=== PATIENT | male | born 1950 | race African-American/Black ===

== ENCOUNTER 2017-01-04 17:36 | Inpatient (IN) ==
[2017-01-04] MEDS ORDERED: PANTOPRAZOLE 40 MG VIAL IV STA (18:22)
[2017-01-04] MEDS ORDERED: ONDANSETRON 4 MG/2 ML VIAL IV STA (18:22)
[2017-01-04] MEDS ORDERED: HYDROmorphone 2 MG/1 ML VIAL IV STA ×2 (18:22→20:20)
[2017-01-04] MEDS ORDERED: AMPICILLIN/SULBACTAM 3,000 MG in SODIUM CHLORIDE 0.9% 100 ML IV STA (18:22)
[2017-01-04] MEDS ORDERED: ONDANSETRON 4 MG/2 ML VIAL ONE (18:27)
[2017-01-04] MEDS ORDERED: HYDROmorphone 2 MG/1 ML VIAL ONE ×2 (18:27→20:19)
[2017-01-04] MEDS ORDERED: PANTOPRAZOLE 40 MG VIAL IV ONE (18:27)
[2017-01-04 18:28] LABS: Basophils % 0.1 % (0.0-0.8); Hematocrit 42.3 VOL% (42.0-52.0); Hemoglobin 13.7 GM/DL (14.0-18.0); Immature Granulocytes % 0.5 %; Immature Granulocytes Absolute 0.07 #; Lymphocytes # 2.1 10*3/uL (1.4-4.0); Lymphocytes % 14.6 % (21.2-54.2); Mean Corpuscular HGB Conc 32.4 GM/DL (32-36); Mean Corpuscular Hemoglobin 30 PG (27-34); Mean Corpuscular Volume 93.8 FL (87-102); Monocytes # 1.5 10*3/uL (0.11-0.8); Monocytes % 10.1 % (1.7-12.7); Neutrophils # 10.9 10*3/uL (1.4-7.4); Neutrophils % 74.7 % (38.7-73.9); Platelet Count 287 T/CUMM (130-400); Red Blood Count 4.51 MC/CUMM (3.8-5.5); Red Cell Distribution Width 13.7 % (9.3-17.3); White Blood Count 14.6 T/CUMM (4-12)
[2017-01-04] MEDS: SODIUM CHLORIDE 0.9% 1,000 ML IV SCH ×4 (18:40→22:43)
[2017-01-04 18:53] LABS: Albumin 3.6 G/DL (3.4-5.0); Bilirubin,Total 0.6 MG/DL (0.2-1.0); Calcium 9.3 MG/DL (8.5-10.1); Osmolality,Calculated 275.8 MOS/KG (273-304); Potassium 4.4 MMOL/L (3.5-5.1); Total Protein 8.1 G/DL (6.4-8.3)
[2017-01-04] MEDS ORDERED: SODIUM CHLORIDE 0.9% 100 ML IV ONE (18:57)
[2017-01-04] MEDS ORDERED: AMPICILLIN/SULBACTAM 3,000 MG VIAL ONE (18:57)
[2017-01-04] MEDS ORDERED: hydrALAZINE 20 MG/1 ML VIAL IV STA (19:09)
[2017-01-04] MEDS ORDERED: LEVOFLOXACIN INJ 750 MG in PREMIX 1 EACH IV STA (19:25)
[2017-01-04] MEDS ORDERED: hydrALAZINE 20 MG/1 ML VIAL ONE (19:32)
[2017-01-04] MEDS ORDERED: LEVOFLOXACIN INJ 0 ML IV ONE (19:32)
--- NOTE | 2017-01-04 19:32 | CT Report ---
Referring physician: Moisés Mitchell EXAM: CT abdomen and pelvis with contrast DATE: January 04, 2017 COMPARISON: None REASON: Generalized abdominal pain and pelvic pain TECHNIQUE: Axial images of the abdomen and pelvis were obtained after administration of 100 cc of Omnipaque 350 IV contrast. Coronal and sagittal reformatted images were also provided. Total DLP is 1427.6 mGy*cm. FINDINGS: Lower thorax: There is mild left pleural fluid. Opacities are present within both lower lung zones, mainly within the right middle lobe and left lower lobe. This likely represents atelectasis and possibly pneumonia. A calcified granuloma is noted within the left lower lobe, and there is likely gynecomastia. ABDOMEN: Liver: There is mild diffuse decreased attenuation of the liver, suggesting fatty liver infiltration/hepatic steatosis. Gallbladder and bile ducts: The gallbladder is unremarkable. No biliary duct dilatation is present. Pancreas: Unremarkable. Spleen: Unremarkable. Adrenals: There is nonspecific mild thickening of both adrenal glands. Kidneys and ureters: No hydronephrosis or suspicious renal lesion is identified. PELVIS: Bladder: There is a small outpouching near the left UVJ. This likely represents a small bladder diverticulum. The bladder is otherwise unremarkable. Reproductive: Unremarkable as visualized. ABDOMEN AND PELVIS: Bowel: The transverse colon and cecum are distended with air, fluid and stool, and there are fluid-filled loops of distal small bowel. This could reflect enteritis or mild ileus. Partial obstruction is felt less likely. Of note, the splenic flexure is poorly distended and difficult to evaluate. Appendix: The appendix is unremarkable. Vasculature: The odontoid arteries. Peritoneum/retroperitoneum: No free air or ascites is seen. Lymph nodes: No suspicious adenopathy is seen. Abdominal/pelvic wall: There is minimal fat-containing umbilical hernia and a small fat-containing left inguinal hernia. Bones: There is mild degenerative change at the lumbar spine. No acute osseous process is seen. IMPRESSION: 1. The transverse colon and descending colon are distended with air, stool and fluid, and there are fluid-filled loops of distal small bowel. This could represent enteritis or ileus. Partial obstruction is felt less likely, but follow-up would be helpful. Of note, the splenic flexure is poorly distended and difficult to evaluate. 2. There are scattered opacities within both lower lung zones, mainly at the right middle lobe and left lower lobe. This likely represents atelectasis, but there could also be pneumonia. There is mild left pleural fluid. 3. Fatty liver infiltration/hepatic steatosis. The CT exam was performed using one or more of the following dose reduction techniques: Automated exposure control and adjustment of the mA and/or kV according to patient size. PROCEDURE INTERPRETED AT [facility] DEPARTMENT OF RADIOLOGY Final Report Signed by: Dr. Ladarius Justice
[2017-01-04 19:53] LABS: Lactic Acid 1.1 MMOL/L (0.4-2.0)
--- NOTE | 2017-01-04 19:55 | Emergency Department Note ---
Sathish Saez Brittany, am scribing for, and in the presence of, Lalito Mitchell MD 18:27. Stephen Saez Doug C, MD, personally performed the services described in this documentation, ascribed by Comfort Bower in my presence, and it is both accurate and complete [id number] . Arrival - Arrival Chief Complaint: Abdominal / Flank Pain Stated Complaint: ABD. PAIN, SOB ED Nursing Triage Note: C/O LEFT SIDED UPPER ABDOMINAL PAIN WITH PAIN ON INSPIRATION. PT STATES IT HS GOTTEN WORSE. PT WAS SEEN THIS PAST SATURDAY IN ED. Mode of Arrival: Ambulatory Limitations: No Limitations Source: Patient, Family, RN Notes Reviewed Time Seen by Provider: 01/04/17 18:21 - History of Present Illness HPI Narrative: Patient is a 66-year-old black male presents to emergency room complaining of abdominal pain. Patient states this started 5 days ago. He swims the emergency room now for the third time. He states initially was hurting in his chest but now it is all across his abdomen. His loss his appetite and he feels nauseated though has not had any vomiting. He denies any fever or chills at home. He states the pain is worse with movement. He states his last movement about 5-6 days ago. He denies any bleeding in his stool and has not seen any melena. He denies any problems emptying his bladder. Onset (ago): day(s) (5) Consistency: constant Severity: severe Severity scale (1-10): 10 Quality: other (pressure) Allergies/Adverse Reactions: Allergies Allergy/AdvReac Type Severity Reaction Status Date / Time No Known Allergies Allergy Unverified 01/01/17 19:29 Home Medications: Home Medications Medication Instructions Recorded Confirmed Type Cyclobenzaprine [Flexeril] 10 mg PO Q12H PRN #30 tablet 01/01/17 01/04/17 Rx Ketorolac Tab [Toradol Tab] 10 mg PO Q6H PRN #14 tablet 01/01/17 01/04/17 Rx Methocarbamol Tab [Robaxin Tab] 750 mg PO QID PRN #20 tablet 01/02/17 01/04/17 Rx methylPREDNISolone DOSEPAK [Medrol 4 mg PO DAILY #21 tablet 01/02/17 01/04/17 Rx Dosepak] traMADol TAB [Ultram] 50 mg PO Q6H PRN #20 tablet 01/02/17 01/04/17 Rx Review of System - Review of System 12 point system: reviewed and no additional remarkable complaints except as stated - Review of System Constitutional: Present: chills. Absent: fever Eyes: Absent: vision change Head/Ears/Nose/Throat: Absent: nasal drainage, sore throat Respiratory: Absent: respiratory distress Cardiovascular: Absent: chest pain, palpitations Gastrointestinal: Present: abdominal pain, constipation. Absent: nausea, vomiting, diarrhea, melena, hematochezia Genitourinary male: Absent: urgency, dysuria, frequency Musculoskeletal: Absent: arm pain, back pain, leg pain, neck pain Skin: Absent: rash Neurological: Absent: headache Psychiatric: Absent: anxiety, depression Endocrine: Absent: fatigue Hematological/Lymphatic: Absent: easy bleeding, easy bruising Medical,Surgical,& Family Hx - Medical History Cardio: History of: Hypertension - Surgical History Orthopedic Surgeries: Surgical HX of;: Orthopedic Surgery (Left Knee Surgery) - Family History Family History: Reports;: Family Cancer, Family Diabetes, Family Heart Disease - Social History Smoking Status: Never smoker Frequency of Alcohol Use: None Type of Drug Use: None Exam Vital Signs: Vital Signs Temperature 98.7 F 01/04/17 19:47 Pulse Rate 111 H 01/04/17 19:47 Respiratory Rate 22 01/04/17 19:47 Blood Pressure 159/108 01/04/17 19:47 O2 Sat by Pulse Oximetry 90 L 01/04/17 18:57 - General General appearance: alert, in distress (appears to be uncomfortable related to pain) - Head Head exam: Present: atraumatic, normocephalic - Eye Eye exam: Present: normal appearance, PERRL, EOMI - ENT ENT exam: Present: normal exam, normal oropharynx, mucous membranes moist - Neck Neck exam: Present: normal inspection, full ROM, trachea midline - Chest Chest inspection: Present: normal inspection, symmetric chest wall rise - Respiratory Respiratory exam: Present: normal lung sounds bilaterally. Absent: rales, rhonchi, wheezes - Cardiovascular Cardiovascular exam: Present: regular rate, normal rhythm, tachycardia, normal heart sounds. Absent: murmur, rubs, gallop - Abdominal Exam Abdominal exam: Present: soft, distention (tight, rigid abdomen), tenderness ( percussable tenderness ), rebound, diminished bowel sounds (no bowel sounds upon auscultation). Absent: normal bowel sounds - Extremities Exam Extremities exam: Present: normal inspection, full ROM - Back Exam Back exam: Present: normal inspection, full ROM - Neurological Exam Neurological exam: Present: alert, oriented X3, CN II-XII intact. Absent: motor sensory deficit - Psychiatric Psychiatric exam: Present: normal affect, normal mood - Skin Skin exam: Present: warm, dry Course Course Narrative: Patient's clinical presentation, radiographic and laboratory findings were discussed with both Dr. Curtis and Dr. Jamir Saldivar. They will evaluate the patient in emergency room for admission. Cultures and IV antibiotics were begun in the ER. Results - Labs CBC & BMP: 01/04/17 18:04 01/04/17 18:04 Lab Results: I have reviewed the patients labs Labs: Laboratory Tests 01/04/17 18:04 WBC 14.6 H D RBC 4.51 Hgb 13.7 L Hct 42.3 MCV 93.8 MCH 30 MCHC 32.4 RDW 13.7 Plt Count 287 D MPV 10.0 Neut % (Auto) 74.7 H Lymph % (Auto) 14.6 L Barton % (Auto) 10.1 Eos % (Auto) 0.0 Baso % (Auto) 0.1 Neut # (Auto) 10.9 H Lymph # (Auto) 2.1 Barton # (Auto) 1.5 H Eos # (Auto) 0.0 Baso # (Auto) 0.0 Immature Gran % 0.5 Nucleated RBC % 0.0 Immature Gran # 0.07 Nucleated RBCs # 0.00 Laboratory Tests 01/04/17 18:04 Sodium 137 Potassium 4.4 Chloride 101 Carbon Dioxide 25 Anion Gap 15.4 H BUN 17 Creatinine 0.90 GFR Calculation 127 BUN/Creatinine Ratio 18.00 Glucose 125 H Calculated Osmolality 275.8 Calcium 9.3 Total Bilirubin 0.60 AST 92 H ALT 172 H Alkaline Phosphatase 117 Total Protein 8.1 Albumin 3.6 Globulin 4.5 H Albumin/Globulin Ratio 0.8 L Lipase 72.0 L Laboratory Tests 01/04/17 18:04 C-Reactive Protein 14.50 H - EKG EKG results: interpreted by ERMMichael, sinus rhythm (Heart rate 107 bpm) EKG shows: tachycardia - Diagnostic Findings Procedure: Chest x-ray: report reviewed by me (Bibasilar infiltrates), CT Abdomen and Pelvis: report reviewed by me (Distended colon and bibasilar atelectasis versus infiltrates) Disposition Clinical Impression: Pneumonia, Sudden onset of severe abdominal pain Case discussed with: patient Disposition: Still a Patient Condition: Guarded Time of Disposition: 19:55
--- NOTE | 2017-01-04 20:18 | General Surgery Consult Note ---
Assessment and Plan (1) Abdominal pain Status: Acute Assessment and plan: This patient has some nonspecific left-sided abdominal pain but it goes along more with left-sided chest wall pain that radiates down the abdomen. I do not detect an abdominal exam that requires any operative intervention at this time. His CT scan also argues against any need for operative intervention. I will follow the patient and the CT scan with p.o. and IV contrast may be helpful if he develops worsening abdominal pain or fails to improve. In the meantime, I would just continue supportive care and bowel regimen and I will continue to follow him. Current Visit: Yes History of Present Illness Chief complaint: Abdominal pain and left chest wall and back pain History of present illness: Mr. Kunz is a 66 year old male who presents to the ER for the third time in the recent week with left-sided chest pain and left-sided abdominal wall pain as well as some dyspnea. He was worked up in the ER and found to have leukocytosis and elevated CRP. CT scan showed some possible enteritis and constipation with distended colon. The patient has been having bowel movements and passing gas but his bowel movements have been slightly constipated. Home Medications Medication Instructions Recorded Confirmed Type Cyclobenzaprine [Flexeril] 10 mg PO Q12H PRN #30 tablet 01/01/17 01/04/17 Rx Ketorolac Tab [Toradol Tab] 10 mg PO Q6H PRN #14 tablet 01/01/17 01/04/17 Rx Methocarbamol Tab [Robaxin Tab] 750 mg PO QID PRN #20 tablet 01/02/17 01/04/17 Rx methylPREDNISolone DOSEPAK [Medrol 4 mg PO DAILY #21 tablet 01/02/17 01/04/17 Rx Dosepak] traMADol TAB [Ultram] 50 mg PO Q6H PRN #20 tablet 01/02/17 01/04/17 Rx Allergies Allergy/AdvReac Type Severity Reaction Status Date / Time No Known Allergies Allergy Unverified 01/01/17 19:29 Medical,Surgical,& Family Hx - Medical History Cardio: History of: Hypertension - Surgical History Orthopedic Surgeries: Surgical HX of;: Orthopedic Surgery (Left Knee Surgery) - Family History Family History: Reports;: Family Cancer, Family Diabetes, Family Heart Disease - Social History Smoking Status: Never smoker Frequency of Alcohol Use: None Type of Drug Use: None - Constitutional Constitutional: Present: as per HPI - EENT Nose, mouth and throat: Present: as per HPI - Cardiovascular Cardiovascular: Present: as per HPI - Respiratory Respiratory: Present: as per HPI - Gastrointestinal Gastrointestinal: Present: as per HPI - Genitourinary Genitourinary: Present: as per HPI - Musculoskeletal Musculoskeletal: Present: as per HPI - Neurological Neurological: Present: as per HPI - Endocrine Endocrine: Present: as per HPI Hematologic/Lymphatic: Present: as per HPI Exam - Constitutional Vitals: Period Temp Pulse Resp BP Sys/Zamora Pulse Ox Last 24 Hr 98.7 F-98.7 F 99-126 20-30 116-239/98-136 90-100 General appearance: no acute distress, over weight - Head Head exam: Present: normal inspection, normocephalic - Eye Eye exam: Present: EOMI Pupils: Present: CALEB - ENT ENT exam: Present: normal exam Mouth exam: Present: normal external inspection, normal voice - Neck Neck exam: Present: normal inspection, trachea midline - Respiratory Respiratory exam: Present: clear to auscultation bilaterally. Absent: accessory muscle use, chest wall tenderness - Cardiovascular Cardiovascular exam: Present: tachycardia. Absent: irregular rhythm, systolic murmur - GI/Abdominal GI/Abdominal exam: Present: hypoactive bowel sounds, tenderness (Minimal tenderness left sided abdominal wall and left chest wall), soft. Absent: distended, guarding, rebound - Extremities Exam Extremities exam: Present: normal inspection, normal capillary refill - Back Exam Back exam: Present: normal inspection - Neurological Exam Neurological exam: Present: alert, oriented X3 Speech: Present: normal - Skin Skin exam: Present: normal color, warm Results - Labs CBC & BMP: 01/04/17 18:04 01/04/17 18:04 - Diagnostic Findings Procedure: CT Abdomen and Pelvis: image reviewed by me, report reviewed by me
--- NOTE | 2017-01-04 20:26 | Hospitalist History & Physical ---
Assessment and Plan (1) Hypertension Status: Acute Current Visit: Yes (2) Tachycardia Status: Acute Current Visit: Yes (3) Abdominal pain Status: Acute Current Visit: Yes (4) Pneumonia Status: Acute Current Visit: Yes (5) Sudden onset of severe abdominal pain Status: Acute Assessment and plan: His CT scan displayed enteritis or ileus. Was felt the partial obstruction was less likely but follow-up would be recommended therefore that order a KUB in the morning. This scattered E's both lower lung ward and in the right middle lobe and left lower lobe is felt to be atelectasis but it could be pneumonia. Patient reports that he hadn't had a bowel movement in a week. We will put him on IV antibiotics. Surgery will follow along with us. Repeat labs in the morning. He does have a slight wheeze. Can order some Xopenex treatments for him and some steroids. Hopefully patient's pain will improve reevaluate patient in the morning Current Visit: Yes History of Present Illness Chief complaint: abdominal pain History of present illness: Mr. Kunz is a 66 year old male past medical history significant for hypertension was his normal state of health till Saturday night. Patient is made to other visits to the emergency record during this time. He he came in with the complaints of shortness of breath and left-sided pain in some chest pain. He comes in today complaining about severe abdominal pain.he was diagnosed with costochondritis and musculoskeletal pain. The complaints today are different than the previous complaints. Today was complaining more of abdominal pain. He rates the pain a 10 out of 10. His abdominal pain on the left radiates up into his rehabs and it does radiate over to the right quadrants also. Patient' s abdomen is distended and he is tender to touch. Patient had a CT scan done and is been evaluated by a surgeon who did not see surgical intervention necessary for this patient. I was consulted to admit him. Home Medications Medication Instructions Recorded Confirmed Type Cyclobenzaprine [Flexeril] 10 mg PO Q12H PRN #30 tablet 01/01/17 01/04/17 Rx Ketorolac Tab [Toradol Tab] 10 mg PO Q6H PRN #14 tablet 01/01/17 01/04/17 Rx Methocarbamol Tab [Robaxin Tab] 750 mg PO QID PRN #20 tablet 01/02/17 01/04/17 Rx methylPREDNISolone DOSEPAK [Medrol 4 mg PO DAILY #21 tablet 01/02/17 01/04/17 Rx Dosepak] traMADol TAB [Ultram] 50 mg PO Q6H PRN #20 tablet 01/02/17 01/04/17 Rx Allergies Allergy/AdvReac Type Severity Reaction Status Date / Time No Known Allergies Allergy Unverified 01/01/17 19:29 Medical,Surgical,& Family Hx - Medical History Cardio: History of: Hypertension - Surgical History Orthopedic Surgeries: Surgical HX of;: Orthopedic Surgery (Left Knee Surgery) - Family History Family History: Reports;: Family Cancer, Family Diabetes, Family Heart Disease - Social History Smoking Status: Never smoker Frequency of Alcohol Use: Occasionally Type of Drug Use: None 12 point system: reviewed and no additional remarkable complaints except as stated Exam - Constitutional Vitals: Period Temp Pulse Resp BP Sys/Zamora Pulse Ox Last 24 Hr 98.7 F-98.7 F 99-126 20-30 116-239/98-136 90-100 - General General appearance: alert, patient does appear to be in pain - Head Head exam: Present: atraumatic, normocephalic - Eye Eye exam: Present: normal appearance, PERRL, EOMI - ENT ENT exam: Present: normal exam, normal oropharynx, mucous membranes moist - Neck Neck exam: Present: normal inspection, full ROM, trachea midline - Chest Chest inspection: Present: normal inspection, symmetric chest wall rise - Respiratory Respiratory exam: Present: normal lung sounds bilaterally patient does have a slight wheeze bilaterally. - Cardiovascular Cardiovascular exam: Present: regular rate, normal rhythm, tachycardia, normal heart sounds. Absent: murmur, rubs, gallop - Abdominal Exam Abdominal exam: Present: soft, distention (tight, rigid abdomen), tenderness ( percussable tenderness ), rebound, decreased bowel sounds. - Extremities Exam Extremities exam: Present: normal inspection, full ROM - Back Exam Back exam: Present: normal inspection, full ROM - Neurological Exam Neurological exam: Present: alert, oriented X3, CN II-XII intact. Absent: motor sensory deficit - Psychiatric Psychiatric exam: Present: normal affect, normal mood - Skin Skin exam: Present: warm, dry Results - Labs CBC & BMP: 01/04/17 18:04 01/04/17 18:04
[2017-01-04] MEDS ORDERED: LACTULOSE 20 GM/30 ML UDCUP PO PRN (20:32)
[2017-01-04] MEDS ORDERED: ONDANSETRON 4 MG/2 ML VIAL IV PRN (20:32)
[2017-01-04] MEDS ORDERED: SODIUM PHOSPHATE ENEMA 133 ML BOTTLE RECTAL ONE (20:39)
[2017-01-04] MEDS ORDERED: cloNIDine 0.1 MG TABLET ONE (21:20)
[2017-01-04] MEDS ORDERED: cloNIDine 0.1 MG TABLET PO ONE (21:22)
[2017-01-04 21:33] LABS: Apearance,Urine CLEAR (Clear); Bilirubin,Urine Negative (Negative); Blood, Urine Negative (Negative); Glucose,Urine (UA) Negative (Negative); Ketones,Urine Negative (Negative); Mucus,Urine Occasional /LPF (Occasional); Nitrite,Urine Negative (Negative); Protein,Urine 30 MG/DL; RBC,Urine 2 /HPF (0-4); Squamous Epithelial Cell,Urine Occasional /HPF (0-10); Urine Color Yellow (Yellow); Urine Specific Gravity > 1.060 (1.001-1.035); WBC,Urine 1 /HPF (0-6)
[2017-01-04] MEDS ORDERED: LABETALOL 20 MG/4 ML SYRINGE IV PRN (21:55)
[2017-01-04] MEDS: HYDROmorphone 2 MG/1 ML VIAL IV PRN (22:01)
[2017-01-04] MEDS: methylPREDNISolone SOD SUC 40 MG/1 ML VIAL IV SCH (22:30)
[2017-01-04] MEDS: DOCUSATE SODIUM 100 MG CAPSULE PO PRN (22:31)
[2017-01-04] MEDS: metroNIDAZOLE INJ 500 MG in PREMIX 1 EACH IV SCH (22:31)
[2017-01-04] MEDS: ENOXAPARIN 40 MG/0.4 ML SYRINGE SUBCUT SCH (22:56)
[2017-01-05] MEDS: LEVALBUTEROL 1.25 MG/3 ML NEB RESP TX SCH ×4 (00:37→19:02)
[2017-01-05] MEDS: HYDROmorphone 2 MG/1 ML VIAL IV PRN ×4 (01:23→20:21)
[2017-01-05] MEDS: metroNIDAZOLE INJ 500 MG in PREMIX 1 EACH IV SCH ×3 (05:09→20:20)
[2017-01-05] MEDS: SODIUM CHLORIDE 0.9% 1,000 ML IV SCH ×4 (06:07→11:13)
[2017-01-05 06:23] LABS: Basophils % 0.1 % (0.0-0.8); Hematocrit 41.9 VOL% (42.0-52.0); Hemoglobin 13.2 GM/DL (14.0-18.0); Immature Granulocytes % 1.1 %; Immature Granulocytes Absolute 0.19 #; Lymphocytes # 1.2 10*3/uL (1.4-4.0); Lymphocytes % 6.8 % (21.2-54.2); Mean Corpuscular HGB Conc 31.5 GM/DL (32-36); Mean Corpuscular Hemoglobin 31 PG (27-34); Mean Corpuscular Volume 96.8 FL (87-102); Mean Platelet Volume 10.3 FL (9.6-12.0); Monocytes # 1.5 10*3/uL (0.11-0.8); Monocytes % 8.9 % (1.7-12.7); Neutrophils # 14.2 10*3/uL (1.4-7.4); Neutrophils % 83.1 % (38.7-73.9); Platelet Count 266 T/CUMM (130-400); Red Blood Count 4.33 MC/CUMM (3.8-5.5); Red Cell Distribution Width 13.9 % (9.3-17.3); White Blood Count 17.1 T/CUMM (4-12)
--- NOTE | 2017-01-05 06:50 | EKG Report ---
Stationary ECG Study [facility] ER Test Date: 01/04/2017 7:15:09 PM Pat Name: MYAH LUNA Department: Room: 526 Gender: M Supply Chain Procurement Manager: : 1950 Requested by: Moisés Shaw Order Number: [id number] Reading MD: MAYCOL SO Intervals [place] Rate: 107 P: 46 MI: 161 QRS: 47 QRSD: 88 T: 15 QT: 296 QTc: 359 Interpretive Statements SINUS TACHYCARDIA Electronically Signed On 01-06-17 00:12:57 [employer] by MAYCOL SO [email or web address]
[2017-01-05 06:55] LABS: Albumin 3.1 G/DL (3.4-5.0); Bilirubin,Total 0.9 MG/DL (0.2-1.0); Calcium 8.5 MG/DL (8.5-10.1); Osmolality,Calculated 284.3 MOS/KG (273-304); Total Protein 7.7 G/DL (6.4-8.3)
--- NOTE | 2017-01-05 07:22 | Hospitalist Progress Note ---
Assessment and Plan (1) Pneumonia Status: Acute Assessment and plan: Patient seems to be better to me this morning currently has elevated white count has a left lower lobe infiltrate on x-ray, do color-flow venous Dopplers to rule out DVT continue broad-spectrum antibiotics and observe him carefully Current Visit: Yes (2) Hypertension Status: Acute Current Visit: Yes Hospitalist: Subjective Interval history: Patient was admitted with breath left-sided pain was felt to have an abdomen was abnormal. He seems to be doing better this morning with less pain Exam - Constitutional Vitals: Period Temp Pulse Resp BP Sys/Zamora Pulse Ox Last 24 Hr 97.9 F-98.8 F 101-124 18-25 156-160/96-121 91-93 Exam: Constitutional: General appearance is normal Eyes: Pupils equal round react to light and accommodation conjunctiva and lids are normal Neck: supple without masses Respiratory: Respiratory effort is normal. Lungs are clear to auscultation. Resonant to percussion. Cardiac: Regular rate and rhythm without murmur rub or gallop. PMI at the midclavicular line by palpation. Carotid arteries 2+ palpation no bruits GI: Bowel sounds normoactive, no tenderness or rebound tenderness, no organomegaly Extremities: no clubbing cyanosis or edema Results - Labs CBC & BMP: 01/05/17 05:42 01/05/17 05:42
--- NOTE | 2017-01-05 08:05 | XRay Report ---
Referring Physician: Alec Avery Exam: XR KUB Date: January 05, 2017 at 7:32 AM Reason: Generalized abdominal pain Comparison: CT abdomen and pelvis January 04, 2017 Findings: There is gaseous distention of the bowel, mainly the ascending colon and transverse colon. This is concerning for mild ileus. Partial distal obstruction is thought less likely but is not excluded. No free air is identified. The renal shadows are largely obscured. There is contrast within the bladder from a recent CT. The osseous structures appear stable. Impression: There is again gaseous distention of the bowel, mainly the ascending colon and transverse colon. This is similar to before and concerning for ileus. Partial distal obstruction is felt less likely but is not excluded. Follow-up would be helpful. PROCEDURE INTERPRETED AT [facility] DEPARTMENT OF RADIOLOGY Final Report Signed by: Dr. Ladarius Justice
[2017-01-05] MEDS: methylPREDNISolone SOD SUC 40 MG/1 ML VIAL IV SCH ×2 (09:15→20:20)
--- NOTE | 2017-01-05 13:33 | General Surgery Progress Note ---
Assessment and Plan (1) Abdominal pain Status: Acute Assessment and plan: The patient had a good bowel movement last night or rather this morning and feels much better. His x-ray shows no acute processes. He has a lot of air in his colon. He needs to get up and move around and this looks like more of a medical treatment saw him in a sign off. Please call back with any questions. Current Visit: Yes Subjective Patient reports: Present: no new complaints, feels better, pain is less, flatus , bowel movement, afebrile Exam - Constitutional Vitals: Period Temp Pulse Resp BP Sys/Zamora Pulse Ox Last 24 Hr 97.4 F-98.8 F 92-124 18-25 140-168/92-121 91-93 General appearance: no acute distress, over weight - Head Head exam: Present: normal inspection, normocephalic - Eye Eye exam: Present: EOMI Pupils: Present: CALEB - ENT ENT exam: Present: normal exam Mouth exam: Present: normal external inspection, normal voice - Neck Neck exam: Present: normal inspection, trachea midline - Respiratory Respiratory exam: Present: clear to auscultation bilaterally. Absent: accessory muscle use, chest wall tenderness - Cardiovascular Cardiovascular exam: Present: RRR. Absent: systolic murmur, tachycardia - GI/Abdominal GI/Abdominal exam: Present: hypoactive bowel sounds, soft. Absent: tenderness, rebound - Extremities Exam Extremities exam: Present: normal inspection, normal capillary refill - Back Exam Back exam: Present: normal inspection - Neurological Exam Neurological exam: Present: alert, oriented X3 Speech: Present: normal - Skin Skin exam: Present: normal color, warm Results - Labs CBC & BMP: 01/05/17 05:42 01/05/17 05:42 - Diagnostic Findings Procedure: Abdominal Flat/Erect: image reviewed by me, report reviewed by me
[2017-01-05] MEDS: traMADol 50 MG TABLET PO PRN (18:17)
[2017-01-05] MEDS: ENOXAPARIN 40 MG/0.4 ML SYRINGE SUBCUT SCH (20:20)
[2017-01-05] MEDS: DOCUSATE SODIUM 100 MG CAPSULE PO PRN (20:20)
[2017-01-05] MEDS: LEVOFLOXACIN INJ 750 MG in PREMIX 1 EACH IV SCH (21:25)
[2017-01-06] MEDS: LEVALBUTEROL 1.25 MG/3 ML NEB RESP TX SCH ×4 (00:40→20:27)
[2017-01-06] MEDS: metroNIDAZOLE INJ 500 MG in PREMIX 1 EACH IV SCH ×3 (04:36→21:48)
[2017-01-06] MEDS: SODIUM CHLORIDE 0.9% 1,000 ML IV SCH ×2 (04:38→15:03)
[2017-01-06 05:16] LABS: Basophils % 0.1 % (0.0-0.8); Hematocrit 37.3 VOL% (42.0-52.0); Hemoglobin 12.3 GM/DL (14.0-18.0); Immature Granulocytes % 0.6 %; Immature Granulocytes Absolute 0.11 #; Lymphocytes # 1.2 10*3/uL (1.4-4.0); Lymphocytes % 6.5 % (21.2-54.2); Mean Corpuscular Hemoglobin 31 PG (27-34); Mean Corpuscular Volume 92.8 FL (87-102); Mean Platelet Volume 10.2 FL (9.6-12.0); Monocytes # 1.3 10*3/uL (0.11-0.8); Monocytes % 7.5 % (1.7-12.7); Neutrophils # 15.3 10*3/uL (1.4-7.4); Neutrophils % 85.3 % (38.7-73.9); Platelet Count 287 T/CUMM (130-400); Red Blood Count 4.02 MC/CUMM (3.8-5.5); Red Cell Distribution Width 13.8 % (9.3-17.3); White Blood Count 17.9 T/CUMM (4-12)
[2017-01-06 05:48] LABS: Calcium 8.6 MG/DL (8.5-10.1); Magnesium 2.6 MG/DL (1.8-2.4); Potassium 4.7 MMOL/L (3.5-5.1)
--- NOTE | 2017-01-06 07:48 | Hospitalist Progress Note ---
Assessment and Plan (1) Pneumonia Status: Acute Assessment and plan: Patient seems to be better to me this morning currently has elevated white count has a left lower lobe infiltrate on x-ray, do color-flow venous Dopplers to rule out DVT continue broad-spectrum antibiotics and observe him carefully 01/06 Dopplers are currently pending, cell count is still elevated. Patient continues to improve is doing well can probably go home on oral antibiotics tomorrow Current Visit: Yes (2) Hypertension Status: Acute Current Visit: Yes Hospitalist: Subjective Interval history: Patient without complaints this morning says he is feeling better Exam - Constitutional Vitals: Period Temp Pulse Resp BP Sys/Zamora Pulse Ox Last 24 Hr 97.4 F-99 F 90-107 14-20 127-168/75-101 91-98 Exam: Constitutional: General appearance is normal Eyes: Pupils equal round react to light and accommodation conjunctiva and lids are normal Neck: supple without masses Respiratory: Respiratory effort is normal. Lungs are clear to auscultation. Resonant to percussion. Cardiac: Regular rate and rhythm without murmur rub or gallop. PMI at the midclavicular line by palpation. Carotid arteries 2+ palpation no bruits GI: Bowel sounds normoactive, no tenderness or rebound tenderness, no organomegaly Extremities: no clubbing cyanosis or edema Results - Labs CBC & BMP: 01/06/17 04:36 01/06/17 04:36
[2017-01-06] MEDS: methylPREDNISolone SOD SUC 40 MG/1 ML VIAL IV SCH ×2 (09:11→20:28)
[2017-01-06] MEDS: traMADol 50 MG TABLET PO PRN (11:35)
[2017-01-06] MEDS: HYDROmorphone 2 MG/1 ML VIAL IV PRN (15:04)
--- NOTE | 2017-01-06 19:21 | Ultrasound Report ---
Referring physician: Reji Tee Exam: Bilateral lower extremity venous ultrasound Date: January 06, 2017 Comparison: None Reason: Shortness of breath Technique: Duplex scan of the bilateral lower extremity veins was performed using B-Mode/grayscale imaging, compression, Doppler spectral analysis and color flow. Ultrasound images were captured and stored. Findings: There is no evidence of thrombus within the left or right common femoral veins, saphenous veins, superficial femoral veins or popliteal veins. Normal compression and augmentation are present throughout. Normal color flow and spectral analysis are observed. Impression: No evidence of deep venous thrombosis within either lower extremity. PROCEDURE INTERPRETED AT [facility] DEPARTMENT OF RADIOLOGY Final Report Signed by: Dr. Ladarius Justice
[2017-01-06] MEDS: ENOXAPARIN 40 MG/0.4 ML SYRINGE SUBCUT SCH (20:28)
[2017-01-06] MEDS: LEVOFLOXACIN INJ 750 MG in PREMIX 1 EACH IV SCH (20:28)
[2017-01-07] MEDS: LEVALBUTEROL 1.25 MG/3 ML NEB RESP TX SCH ×4 (01:12→19:13)
[2017-01-07] MEDS: metroNIDAZOLE INJ 500 MG in PREMIX 1 EACH IV SCH ×3 (05:17→20:48)
[2017-01-07] MEDS: methylPREDNISolone SOD SUC 40 MG/1 ML VIAL IV SCH ×2 (09:00→21:45)
[2017-01-07] MEDS: HYDROmorphone 2 MG/1 ML VIAL IV PRN (10:43)
--- NOTE | 2017-01-07 10:49 | EKG Report ---
Stationary ECG Study [facility] Test Date: 01/07/2017 10:48:22 AM Pat Name: MYAH LUNA Department: Room: 526 Gender: M Academic Support Specialist: SF : 1950 Requested by: Alec Avery Order Number: [id number] Дмитрий MD: ALVARADO CULVER Intervals [place] Rate: 100 P: 48 AL: 133 QRS: 36 QRSD: 83 T: 1 QT: 315 QTc: 372 Interpretive Statements SINUS TACHYCARDIA MODERATE ST DEPRESSION Electronically Signed On 01-07-17 23:10:01 [employer] by ALVARADO CULVER [email or web address]
--- NOTE | 2017-01-07 11:02 | Hospitalist Progress Note ---
Assessment and Plan (1) Hypertension Status: Acute Current Visit: Yes (2) Tachycardia Status: Acute Current Visit: Yes (3) Abdominal pain Status: Acute Current Visit: Yes (4) Pneumonia Status: Acute Current Visit: Yes (5) Sudden onset of severe abdominal pain Status: Acute Assessment and plan: His CT scan displayed enteritis or ileus. Was felt the partial obstruction was less likely but follow-up would be recommended therefore that order a KUB in the morning. This scattered E's both lower lung ward and in the right middle lobe and left lower lobe is felt to be atelectasis but it could be pneumonia. Patient reports that he hadn't had a bowel movement in a week. We will put him on IV antibiotics. Surgery will follow along with us. Repeat labs in the morning. He does have a slight wheeze. Can order some Xopenex treatments for him and some steroids. Hopefully patient's pain will improve reevaluate patient in the morning 01/07/17 patient's pain is increased on the left side of his chest. Order cardiac enzymes and put him on a monitor. I reviewed his EKG there was no ST elevation although there was some depression. His chest pain doesn't sound typical. Patient in my opinion has a low threshold for pain. And breathing made his pain worse. Patient does have a pneumonia. Repeat chest x-ray in the morning and follow up on Lab work Current Visit: Yes Hospitalist: Subjective Interval history: I was getting ready to discharge the patient previously had no complaints but while I was doing orders at the computer he developed a sharp Sided chest pain Exam - Constitutional Vitals: Period Temp Pulse Resp BP Sys/Zamora Pulse Ox Last 24 Hr 97.5 F-99.1 F 74-106 14-20 152-170/78-96 91-100 General appearance: normal weight - Head Head exam: Present: normal inspection - ENT ENT exam: Present: normal exam - Neck Neck exam: Present: normal inspection - Respiratory Respiratory exam: Present: clear to auscultation bilaterally - Cardiovascular Cardiovascular exam: Present: regular rate and rhythm - GI/Abdominal GI/Abdominal exam: Present: normal bowel sounds - Extremities Exam Extremities exam: Present: normal inspection - Back Exam Back exam: Present: normal inspection - Neurological Exam Neurological exam: Present: alert Results - Labs CBC & BMP: 01/06/17 04:36 01/06/17 04:36
--- NOTE | 2017-01-07 11:30 | XRay Report ---
Portable chest Date: 01/07/2017 Clinical history: Chest pain Comparison: 01/04/2017 Technique: Portable AP sitting chest Findings: The heart is minimally enlarged with minimal dilatation and uncoiling the aorta. Progressive pleural-parenchymal findings in the left mid to lower lung zone with more stable findings at the right lung base. Stable mediastinum and osseous structures. Impression: Progressive infiltration/edema/atelectasis in the left lung with enlarging [id number] left pleural effusion. More stable findings at the right lung base. Left lateral decubitus chest x-ray may be helpful to determine how much free fluid is present. Follow-up x-rays are recommended to document clearing and exclude additional underlying pathology. PROCEDURE INTERPRETED AT [facility] DEPARTMENT OF RADIOLOGY Final Report Signed by: Dr. Danni Lara
[2017-01-07 11:49] LABS: Troponin I Only 0.017 NG/ML (0.00-0.045)
[2017-01-07] MEDS: amLODIPine 5 MG TABLET PO SCH (11:53)
[2017-01-07] MEDS: SODIUM CHLORIDE 0.9% 1,000 ML IV SCH (12:00)
--- NOTE | 2017-01-07 17:27 | Pulmonology Consult Note ---
Assessment and Plan (1) Pleural effusion on left Status: Acute Assessment and plan: It is apparent that he has a left pleural effusion that is increasing in size. I will get a CT scan of the chest to determine the extent of it. We will check for pulmonary embolus at the same time as we need to rule that out. Likely will need a thoracentesis in the morning. Current Visit: Yes (2) Ileus Status: Acute Assessment and plan: This appears to have resolved. I have had a partial small bowel obstruction. Not clear as to the exact diagnosis there but it is improved. Current Visit: Yes (3) Pneumonia Status: Acute Assessment and plan: Clinically I think he has a pneumonia. Has an elevated white blood count left pleural effusion and left basilar infiltrate. Currently on Levaquin and Flagyl which is acceptable. Current Visit: Yes History of Present Illness Chief complaint: Left pleuritic pain History of present illness: Mr. Kunz is a 66 year old male who had the onset of abdominal pain and left side pain about a week ago. He came to the emergency room was treated and sent home came back the next day was treated again and then came back Saturday which is 3 days ago and was admitted. He had an elevated white count. Temperature was only about 99 he has not had any fever or chills. He was found to have either an ileus or partial small bowel obstruction on abdominal CT. He responded to it in a month and his symptoms improved. Then he developed some left pleuritic pain. His CT on admission showed a left pleural effusion and some atelectatic infiltrate in both the left lower lobe and right lower lobe. Chest x-ray done today shows increased left pleural effusion. Patient is a non- smoker and has never had any lung problems in the past. He has been on Levaquin and Flagyl since admission. I was asked to see him to evaluate the chest process. Home Medications Medication Instructions Recorded Confirmed Type Cyclobenzaprine [Flexeril] 10 mg PO Q12H PRN #30 tablet 01/01/17 01/04/17 Rx Ketorolac Tab [Toradol Tab] 10 mg PO Q6H PRN #14 tablet 01/01/17 01/04/17 Rx Methocarbamol Tab [Robaxin Tab] 750 mg PO QID PRN #20 tablet 01/02/17 01/04/17 Rx methylPREDNISolone DOSEPAK [Medrol 4 mg PO DAILY #21 tablet 01/02/17 01/04/17 Rx Dosepak] traMADol TAB [Ultram] 50 mg PO Q6H PRN #20 tablet 01/02/17 01/04/17 Rx Allergies Allergy/AdvReac Type Severity Reaction Status Date / Time No Known Allergies Allergy Unverified 01/01/17 19:29 12 point system: reviewed and no additional remarkable complaints except as stated - Cardiovascular Cardiovascular: Present: dyspnea - Respiratory Respiratory: Present: dyspnea, pain on inspiration - Gastrointestinal Gastrointestinal: Present: abdominal pain, bloating Exam (Pulmonay) H&P - Constitutional Vitals: Period Temp Pulse Resp BP Sys/Zamora Pulse Ox Last 24 Hr 98.1 F-99.1 F 74-97 14-20 152-170/78-96 90-100 Exam: Patient is alert oriented. Vital signs normal. Pupils react to light. Throat is clear. Neck supple no bruits. Chest reveals some dullness at the left base and decreased breath sounds clear. I do hear a few crackles at the left base as well. Heart normal rate and rhythm no murmurs no rubs no gallops. Abdomen soft nontender no masses. Bowel sounds are present. Extremities no clubbing cyanosis or edema. Calves nontender. Medical,Surgical,& Family Hx - Medical History Cardio: History of: Hypertension - Surgical History Orthopedic Surgeries: Surgical HX of;: Orthopedic Surgery (Left Knee Surgery) - Family History Family History: Reports;: Family Cancer, Family Diabetes, Family Heart Disease - Social History Smoking Status: Never smoker Frequency of Alcohol Use: Occasionally Type of Drug Use: None Results - Labs CBC & BMP: 01/06/17 04:36 01/06/17 04:36 Lab Results: I have reviewed the past 24 hour labs - Diagnostic Findings Procedure: Chest x-ray: image reviewed by me (Moderate left pleural effusion worse than on admission.), CT Abdomen and Pelvis: image reviewed by me (From shows in addition to the abdominal abnormalities, a left pleural effusion with some bibasilar atelectasis at the left worse than the right side.)
--- NOTE | 2017-01-07 18:31 | CT Report ---
EXAM: CT chest PE study DATE: January 07, 2017 at 5:59 PM COMPARISON: CT abdomen and pelvis January 04, 2017 REASON: Left pleural effusion, shortness of breath TECHNIQUE: Axial images of the chest were obtained after administration of 80 cc of Omnipaque 350 intravenous contrast. Coronal and sagittal reformatted images were also acquired. The study was performed per pulmonary embolism protocol. Total DLP was 483.0 mGy*cm. FINDINGS: Pulmonary arteries: There is no evidence of pulmonary embolism through the segmental pulmonary arteries. Vascular/heart: The thoracic aorta is normal in size without evidence of dissection. There is borderline cardiomegaly. Minimal pericardial fluid is seen but is likely physiologic. There is minimal scattered calcified plaque at the visualized arteries. Lymph nodes: There is an upper normal size left internal mammary lymph node, measuring 0.5 cm in short axis diameter on image 52. No suspicious mediastinal, hilar or axillary adenopathy is identified. Lower neck: Unremarkable as visualized. Chest wall: There appears to be bilateral gynecomastia, but evaluation of the breasts is limited by CT. Lungs: There is mild left pleural fluid and trace right pleural fluid. There are prominent/confluent opacities within the left lower lobe and scattered opacities within the remaining lower lung zones. This likely represents atelectasis, but superimposed pneumonia is not excluded at the left lower lobe. Minimal scarring is also suspected at both lung apices. No pneumothorax is identified. Note is made of calcified granulomas within the left lower lobe. Bones: No acute osseous process is identified. Upper abdomen: There is mild fluid within the visualized ascending colon. The colon appears less distended today. IMPRESSION: 1. No evidence of pulmonary embolism. 2. There are confluent opacities within the left lower lobe and scattered opacities within the remaining lower lung zones. This likely represents atelectasis, but superimposed pneumonia is not excluded at the left lower lobe. 3. Mild left pleural fluid. 4. There is mild fluid within the ascending colon, but the visualized colon appears less distended today compared to January 04, 2017. PROCEDURE INTERPRETED AT [facility] DEPARTMENT OF RADIOLOGY Final Report Signed by: Dr. Ladarius Justice
[2017-01-07] MEDS: LEVOFLOXACIN INJ 750 MG in PREMIX 1 EACH IV SCH (20:49)
[2017-01-07] MEDS: ENOXAPARIN 40 MG/0.4 ML SYRINGE SUBCUT SCH (20:52)
[2017-01-08] MEDS: LEVALBUTEROL 1.25 MG/3 ML NEB RESP TX SCH ×4 (00:50→19:00)
[2017-01-08] MEDS: SODIUM CHLORIDE 0.9% 1,000 ML IV SCH ×3 (04:26→20:00)
[2017-01-08] MEDS: metroNIDAZOLE INJ 500 MG in PREMIX 1 EACH IV SCH ×3 (04:28→20:45)
[2017-01-08 06:54] LABS: Basophils % 0.2 % (0.0-0.8); Hematocrit 41.3 VOL% (42.0-52.0); Hemoglobin 13.7 GM/DL (14.0-18.0); Immature Granulocytes % 3.1 %; Lymphocytes # 1.8 10*3/uL (1.4-4.0); Mean Corpuscular HGB Conc 33.2 GM/DL (32-36); Mean Corpuscular Hemoglobin 30 PG (27-34); Mean Corpuscular Volume 90.8 FL (87-102); Mean Platelet Volume 9.7 FL (9.6-12.0); Monocytes # 1.1 10*3/uL (0.11-0.8); Monocytes % 6.6 % (1.7-12.7); Neutrophils # 12.6 10*3/uL (1.4-7.4); Neutrophils % 79.1 % (38.7-73.9); Platelet Count 412 T/CUMM (130-400); Red Blood Count 4.55 MC/CUMM (3.8-5.5); Red Cell Distribution Width 13.7 % (9.3-17.3)
[2017-01-08 07:16] LABS: Calcium 8.9 MG/DL (8.5-10.1); Magnesium 2.5 MG/DL (1.8-2.4); Osmolality,Calculated 286.1 MOS/KG (273-304); Potassium 4.2 MMOL/L (3.5-5.1)
[2017-01-08] MEDS: amLODIPine 5 MG TABLET PO SCH (08:56)
[2017-01-08] MEDS: methylPREDNISolone SOD SUC 40 MG/1 ML VIAL IV SCH ×2 (08:57→22:13)
--- NOTE | 2017-01-08 09:57 | Hospitalist Progress Note ---
Assessment and Plan (1) Hypertension Status: Acute Current Visit: Yes (2) Tachycardia Status: Acute Current Visit: Yes (3) Abdominal pain Status: Acute Current Visit: Yes (4) Pneumonia Status: Acute Current Visit: Yes (5) Sudden onset of severe abdominal pain Status: Acute Assessment and plan: His CT scan displayed enteritis or ileus. Was felt the partial obstruction was less likely but follow-up would be recommended therefore that order a KUB in the morning. This scattered E's both lower lung ward and in the right middle lobe and left lower lobe is felt to be atelectasis but it could be pneumonia. Patient reports that he hadn't had a bowel movement in a week. We will put him on IV antibiotics. Surgery will follow along with us. Repeat labs in the morning. He does have a slight wheeze. Can order some Xopenex treatments for him and some steroids. Hopefully patient's pain will improve reevaluate patient in the morning 01/07/17 patient's pain is increased on the left side of his chest. Order cardiac enzymes and put him on a monitor. I reviewed his EKG there was no ST elevation although there was some depression. His chest pain doesn't sound typical. Patient in my opinion has a low threshold for pain. And breathing made his pain worse. Patient does have a pneumonia. Repeat chest x-ray in the morning and follow up on Lab work 01/08/17 patient had a thoracentesis is morning but no fluid be aspirated. We' ll need to continue to follow up chest x-rays in the morning make sure this doesn't increase. He needs 1-2 more days of IV antibiotics and that he should be eligible for discharge. Current Visit: Yes Hospitalist: Subjective Interval history: Patient started to feel better. He does have some pain on the left side. Dr. Villa try to do a thoracentesis but no fluid could be aspirated Exam - Constitutional Vitals: Period Temp Pulse Resp BP Sys/Zamora Pulse Ox Last 24 Hr 98.1 F-99.4 F 77-97 16-20 149-169/81-96 90-100 General appearance: normal weight - Head Head exam: Present: normal inspection - ENT ENT exam: Present: normal exam - Neck Neck exam: Present: normal inspection - Respiratory Respiratory exam: Present: clear to auscultation bilaterally - Cardiovascular Cardiovascular exam: Present: regular rate and rhythm - GI/Abdominal GI/Abdominal exam: Present: normal bowel sounds - Extremities Exam Extremities exam: Present: normal inspection - Back Exam Back exam: Present: normal inspection - Neurological Exam Neurological exam: Present: alert Results - Labs CBC & BMP: 01/08/17 06:27 01/08/17 06:28
--- NOTE | 2017-01-08 10:12 | Pulmonology Progress Note ---
Pulmonary - PN: Subj Interval history: Chest CT showed a small left pleural effusion but it looks to be enough to tap. I did a left thoracentesis today but it was a dry tap. We tried 3 different areas. At this point I will leave it alone and follow-up with x-rays for a couple of days. Exam (Progress Note) - Constitutional Vitals: Period Temp Pulse Resp BP Sys/Zamora Pulse Ox Last 24 Hr 98.1 F-99.4 F 77-97 16-20 149-169/81-96 90-100 General appearance: no severe distress Exam: Patient alert oriented vital signs normal. Pupils react to light. Throat is clear. Neck supple no bruits. Chest reveals decreased breath sounds at the left base and dullness there. Heart normal rate and rhythm no murmurs. Abdomen soft no masses. Bowel sounds present. Extremities no clubbing cyanosis or edema. Calves nontender. Results - Labs CBC & BMP: 01/08/17 06:27 01/08/17 06:28 Lab Results: I have reviewed the past 24 hour labs - Diagnostic Findings Procedure: CT - chest: image reviewed by me (No pulmonary embolus. Small left pleural effusion. Some atelectasis at the left base.) Assessment and Plan (1) Pleural effusion on left Status: Acute Assessment and plan: It is apparent that he has a left pleural effusion that is increasing in size. I will get a CT scan of the chest to determine the extent of it. We will check for pulmonary embolus at the same time as we need to rule that out. Likely will need a thoracentesis in the morning. 01/08/2017 attempted left thoracentesis but unable to get fluid. Probably not enough to try further at this point. We will follow up with x-ray Current Visit: Yes (2) Ileus Status: Acute Assessment and plan: This appears to have resolved. I have had a partial small bowel obstruction. Not clear as to the exact diagnosis there but it is improved. 01/08/2017 this is improved. Current Visit: Yes (3) Pneumonia Status: Acute Assessment and plan: Clinically I think he has a pneumonia. Has an elevated white blood count left pleural effusion and left basilar infiltrate. Currently on Levaquin and Flagyl which is acceptable. 01/08/2017 continue with antibiotics for suspected pneumonia. Current Visit: Yes
--- NOTE | 2017-01-08 10:13 | Operative Note ---
Date of procedure: 01/08/17 (Attempted left thoracentesis, dry tap) Pre-op diagnosis: Small left pleural effusion, rule out empyema Post-op diagnosis: same Procedure: After an appropriate time out to be sure we were dealing with Will Kunz, the patient was placed on the side of the bed in the seated position. I percussed his left chest and found the top edge of the dullness. Movement one interspace below that. Betadine was used followed by local with Xylocaine. We used the needle with the catheter and I was never able to obtain any fluid. We went 3 different locations. It was a dry tap. Procedure was terminated. We will follow-up with x-rays. Anesthesia: local Surgeon / Physician: Eran Villa Estimated blood loss: none Specimens: none sent Condition: stable Disposition: floor Results - Labs CBC & BMP: 01/08/17 06:27 01/08/17 06:28 Discharge Plan - Discharge Medications No Action Cyclobenzaprine [Flexeril] 10 mg PO Q12H PRN #30 tablet PRN Reason: Muscle Spasm Ketorolac Tab [Toradol Tab] 10 mg PO Q6H PRN #14 tablet PRN Reason: Pain Methocarbamol Tab [Robaxin Tab] 750 mg PO QID PRN #20 tablet PRN Reason: Muscle Pain methylPREDNISolone DOSEPAK [Medrol Dosepak] 4 mg PO DAILY #21 tablet traMADol TAB [Ultram] 50 mg PO Q6H PRN #20 tablet PRN Reason: Pain - Follow Up or Referral - Forms/Instructions
[2017-01-08] MEDS: traMADol 50 MG TABLET PO PRN (12:35)
[2017-01-08] MEDS: LEVOFLOXACIN INJ 750 MG in PREMIX 1 EACH IV SCH (20:45)
[2017-01-08] MEDS: ENOXAPARIN 40 MG/0.4 ML SYRINGE SUBCUT SCH (20:48)
[2017-01-08] MEDS: ZALEPLON 5 MG CAPSULE PO PRN (20:48)
[2017-01-09] MEDS: LEVALBUTEROL 1.25 MG/3 ML NEB RESP TX SCH ×4 (00:20→19:00)
[2017-01-09] MEDS: metroNIDAZOLE INJ 500 MG in PREMIX 1 EACH IV SCH ×3 (04:13→21:25)
[2017-01-09 06:38] LABS: Basophils % 0.2 % (0.0-0.8); Hematocrit 42.3 VOL% (42.0-52.0); Hemoglobin 13.7 GM/DL (14.0-18.0); Immature Granulocytes % 2.9 %; Immature Granulocytes Absolute 0.45 #; Lymphocytes # 1.4 10*3/uL (1.4-4.0); Lymphocytes % 9.1 % (21.2-54.2); Mean Corpuscular HGB Conc 32.4 GM/DL (32-36); Mean Corpuscular Hemoglobin 30 PG (27-34); Mean Corpuscular Volume 93.6 FL (87-102); Mean Platelet Volume 9.4 FL (9.6-12.0); Monocytes % 6.4 % (1.7-12.7); Neutrophils # 12.8 10*3/uL (1.4-7.4); Neutrophils % 81.4 % (38.7-73.9); Platelet Count 383 T/CUMM (130-400); Red Blood Count 4.52 MC/CUMM (3.8-5.5); Red Cell Distribution Width 13.7 % (9.3-17.3); White Blood Count 15.7 T/CUMM (4-12)
[2017-01-09 07:12] LABS: Calcium 8.3 MG/DL (8.5-10.1); Potassium 4.5 MMOL/L (3.5-5.1)
--- NOTE | 2017-01-09 07:22 | XRay Report ---
Exam: XR chest 1V portable Date: 01/09/2017 610 AM Indication: Follow-up pneumonia Comparison: 01/07/2017 Technical: AP portable Findings: Cardiomegaly present. Low volume effusions and atelectatic change infiltrate present. Left base with minimal platelike atelectatic change in the right base. External cardiac leads are present. Mediastinum and bony structures are otherwise intact Impression: 1. Cardiomegaly 2. Persistent infiltrate or atelectasis change in both basis left greater than right PROCEDURE INTERPRETED AT [facility] DEPARTMENT OF RADIOLOGY Final Report Signed by: Dr. Sudheer Casey
[2017-01-09] MEDS: methylPREDNISolone SOD SUC 40 MG/1 ML VIAL IV SCH ×2 (09:16→21:25)
[2017-01-09] MEDS: amLODIPine 5 MG TABLET PO SCH (09:17)
[2017-01-09] MEDS: SODIUM CHLORIDE 0.9% 1,000 ML IV SCH (10:13)
--- NOTE | 2017-01-09 10:36 | Pulmonology Progress Note ---
Pulmonary - PN: Subj Interval history: Chest CT showed a small left pleural effusion but it looks to be enough to tap. I did a left thoracentesis today but it was a dry tap. We tried 3 different areas. At this point I will leave it alone and follow-up with x-rays for a couple of days. 01/09/2017 patient is feeling better. Chest x-ray actually looks better. Hopefully the left pleural effusion will continue to resolve. Does not have any fever. Exam (Progress Note) - Constitutional Vitals: Period Temp Pulse Resp BP Sys/Zamora Pulse Ox Last 24 Hr 98.2 F-99.5 F 70-97 16-20 119-170/67-107 92-99 Exam: Patient alert oriented vital signs normal. Pupils react to light. Throat is clear. Neck supple no bruits. Chest reveals decreased breath sounds at the left base and dullness there. Heart normal rate and rhythm no murmurs. Abdomen soft no masses. Bowel sounds present. Extremities no clubbing cyanosis or edema. Calves nontender. Results - Labs CBC & BMP: 01/09/17 06:13 01/09/17 06:13 Lab Results: I have reviewed the past 24 hour labs - Diagnostic Findings Procedure: Chest x-ray: image reviewed by me (Left pleural effusion is smaller. Still has some atelectasis at the bases.) Assessment and Plan (1) Pleural effusion on left Status: Acute Assessment and plan: It is apparent that he has a left pleural effusion that is increasing in size. I will get a CT scan of the chest to determine the extent of it. We will check for pulmonary embolus at the same time as we need to rule that out. Likely will need a thoracentesis in the morning. 01/08/2017 attempted left thoracentesis but unable to get fluid. Probably not enough to try further at this point. We will follow up with x-ray 01/09/2017 this is resolving. Probably sympathetic to abdominal process. Current Visit: Yes (2) Ileus Status: Acute Assessment and plan: This appears to have resolved. I have had a partial small bowel obstruction. Not clear as to the exact diagnosis there but it is improved. 01/08/2017 this is improved. 01/09/2017 patient is eating and passing gas. Current Visit: Yes (3) Pneumonia Status: Acute Assessment and plan: Clinically I think he has a pneumonia. Has an elevated white blood count left pleural effusion and left basilar infiltrate. Currently on Levaquin and Flagyl which is acceptable. 01/08/2017 continue with antibiotics for suspected pneumonia. 01/09/2017 continuing antibiotics. Could be changed to oral medications when he is able to tolerate them p.o. Current Visit: Yes
--- NOTE | 2017-01-09 17:20 | Hospitalist Progress Note ---
Hospitalist: Subjective Interval history: Patient denies any chest pain or shortness of breath. He is able to ambulate across the room without significant dyspnea. He is tolerating oral intake well. He reports a small bowel movement earlier today. He denies any melena or bright red blood per rectum. He reports mild left lower quadrant abdominal pain. That has improved since hospitalization. Exam - Constitutional Vitals: Period Temp Pulse Resp BP Sys/Zamora Pulse Ox Last 24 Hr 98.2 F-99.1 F 70-97 16-20 137-154/73-90 92-99 General appearance: no acute distress, over weight - Head Head exam: Present: normal inspection, normocephalic, atraumatic - Eye Eye exam: Present: EOMI. Absent: conjunctival injection, scleral icterus Pupils: Present: CALEB - ENT ENT exam: Present: normal exam - Neck Neck exam: Present: normal inspection. Absent: lymphadenopathy, thyromegaly - Respiratory Respiratory exam: Present: other (Diminished lung sounds at the left lung base with possible egophony. No wheezes or rales appreciated. Nonlabored breathing noted.) - Cardiovascular Cardiovascular exam: Present: regular rate and rhythm. Absent: diastolic murmur , systolic murmur - GI/Abdominal GI/Abdominal exam: Present: normal bowel sounds, soft. Absent: mass, organomegaly, tenderness - Extremities Exam Extremities exam: Present: normal inspection, normal capillary refill. Absent: calf tenderness, edema - Neurological Exam Neurological exam: Present: alert, oriented X3. Absent: motor sensory deficit - Psychiatric Psychiatric exam: Present: normal affect, normal mood - Skin Skin exam: Present: normal color, warm, dry Results - Labs CBC & BMP: 01/09/17 06:13 01/09/17 06:13 Labs: WBC is improving. Blood cultures show no growth to date at 3 days. - Impressions * Left pleural effusion- etiology unclear- check ECHO and TSH. Seems to be resolving. CXR in am and if continues to improve, consider dc in am * Elevated LFTs ? fatty liver vs. other- Check LFTs in am. Check RUQ U/S and viral hepatitis panel * SBO vs ileus- resolved * Constipation- laxatives Ambulate in halls TID. D/W significant other, pt and nursing staff. All questions answered.
[2017-01-09] MEDS: ZALEPLON 5 MG CAPSULE PO PRN (21:25)
[2017-01-09] MEDS: ENOXAPARIN 40 MG/0.4 ML SYRINGE SUBCUT SCH (21:25)
[2017-01-09] MEDS: LEVOFLOXACIN INJ 750 MG in PREMIX 1 EACH IV SCH (22:45)
[2017-01-10] MEDS: LEVALBUTEROL 1.25 MG/3 ML NEB RESP TX SCH ×3 (01:57→15:05)
[2017-01-10] MEDS: metroNIDAZOLE INJ 500 MG in PREMIX 1 EACH IV SCH ×2 (04:40→14:05)
[2017-01-10 06:44] LABS: Basophils % 0.2 % (0.0-0.8); Hematocrit 43.7 VOL% (42.0-52.0); Hemoglobin 14.1 GM/DL (14.0-18.0); Immature Granulocytes % 4.2 %; Immature Granulocytes Absolute 0.83 #; Mean Corpuscular HGB Conc 32.3 GM/DL (32-36); Mean Corpuscular Hemoglobin 30 PG (27-34); Mean Corpuscular Volume 93.4 FL (87-102); Mean Platelet Volume 9.5 FL (9.6-12.0); Monocytes % 4.9 % (1.7-12.7); Neutrophils % 80.7 % (38.7-73.9); Platelet Count 439 T/CUMM (130-400); Red Blood Count 4.68 MC/CUMM (3.8-5.5); Red Cell Distribution Width 13.5 % (9.3-17.3); White Blood Count 19.8 T/CUMM (4-12)
[2017-01-10] MEDS: SODIUM CHLORIDE 0.9% 1,000 ML IV SCH ×2 (07:00→09:51)
[2017-01-10 07:11] LABS: Band Neutrophils 1 % (0-10); Hypochromasia 1+; Lymphocytes 7 % (20-55); Platelet Estimate Adequate; Segmented Neutrophils 85 % (50-85); Total Cells Counted 100
[2017-01-10 07:30] LABS: Albumin 2.5 G/DL (3.4-5.0); Bilirubin,Total 0.4 MG/DL (0.2-1.0); Calcium 8.4 MG/DL (8.5-10.1); Potassium 4.8 MMOL/L (3.5-5.1); Total Protein 6.7 G/DL (6.4-8.3)
[2017-01-10 07:33] LABS: Free T4 (Free Thyroxine) 1.09 NG/DL (0.76-1.46); Thyroid Stimulating Hormone 3.64 uIU/ml (0.358-3.74)
--- NOTE | 2017-01-10 07:46 | Discharge Summary ---
<Nancy oSlis - Last Filed: 01/10/17 07:47> Hospital Course - Hospital Course Hospital Course: Mr. Kunz is a 66 yr old male patient that presented to the ED on 01/04 with complaints of severe acute abdominal pain. Patient had been recently seen in the ER for pain but was treated and released. Returned with pain that was rated 10/ [address] scan was ordered to evaluate patient. CT scan revealed possible enteritis or ileus. At the time, surgery did not deem surgical intervention necessary but the patient was admitted to the hospitalist service for further evaluation. CXR was also performed and atelectasis and pneumonia was found. Antibiotic therapy and breathing treatments were initiated. The patient began to progress with treatment; however while the physician was entering orders for the discharge on 01/07, the patient complained of left sided chest pain 10/10. EKG ordered, cxr,and tronopins. Patient was monitored on telemetry and cardiac enzymes were performed (- results). per MD progress note 'reviewed his EKG there was no ST elevation although there was some depression. His chest pain doesn't sound typical. And breathing made his pain worse. Patient does have a pneumonia. Repeat chest x-ray in the morning and follow up on Lab work' XR revealed what appeared to be pulmonary effusion and Pulmonary was consulted. Attempted thoracentesis but no fluid removed. Pt now denies chest pain or any shortness of breath. Patient is ambulating and still reports abdominal pain but it has improved since hospital stay. WBC have increased in today's labs but presumed to be secondary to IV steroid usage. VS are stable. No fever, chills, or bleeding noted. Patient ready for discharge. Will follow up with care provider if any changes occur. Specialty Discharge - Follow Up or Referrals Follow up with: Eran Villa MD [Physician] - 02/11/17 2:15 pm (also needs CXR, BMP CBC) Discharge Plan - Discharge Data Disposition: Disch To Home/Self Care - Discharge Medications New Polyethylene Glycol Powder [Miralax] 17 gm PO DAILY Lactulose Liquid [Chronulac] 20 gm PO Q4H PRN #300 ml PRN Reason: Constipation amLODIPine [Norvasc] 5 mg PO DAILY tablet Continue traMADol TAB [Ultram] 50 mg PO Q6H PRN #20 tablet PRN Reason: Pain Discontinued Cyclobenzaprine [Flexeril] 10 mg PO Q12H PRN #30 tablet PRN Reason: Muscle Spasm Ketorolac Tab [Toradol Tab] 10 mg PO Q6H PRN #14 tablet PRN Reason: Pain Methocarbamol Tab [Robaxin Tab] 750 mg PO QID PRN #20 tablet PRN Reason: Muscle Pain methylPREDNISolone DOSEPAK [Medrol Dosepak] 4 mg PO DAILY #21 tablet - Follow Up or Referral Follow Up: Eran Villa MD [Physician] - 02/11/17 2:15 pm (also needs CXR, BMP CBC) dr epi [Other] - 2 Weeks - Forms/Instructions Instructions: Ileus (DC), Pneumonia (DC) Exam - Constitutional Vitals: Period Temp Pulse Resp BP Sys/Zamora Pulse Ox Last 24 Hr 97.8 F-98.4 F 70-92 18-20 139-171/75-100 95-98 Discharge Results Procedures and tests throughout hospitalization: Pending Orders 01/07/17 17:32 Glucose,Pleural Fluid Routine LDH,Body Fluid Routine 01/08/17 04:00 Cytology Request IN AM 01/08/17 09:00 AFB Culture/Smears Routine Body Fluid Cult and Gram Stain Routine Cell Count w Diff, Pleural Fld Routine Total Protein,Body Fluid Routine Labs on day of discharge: Labs from last 24 hours 01/10/17 01/10/17 01/10/17 06:13 06:13 06:13 WBC 19.8 H RBC 4.68 Hgb 14.1 Hct 43.7 MCV 93.4 MCH 30 MCHC 32.3 RDW 13.5 Plt Count 439 H MPV 9.5 L Neut % (Auto) 80.7 H Lymph % (Auto) 10.0 L [place] % (Auto) 4.9 Eos % (Auto) 0.0 Baso % (Auto) 0.2 Neut # (Auto) 16.0 H Lymph # (Auto) 2.0 [place] # (Auto) 1.0 H Eos # (Auto) 0.0 Baso # (Auto) 0.0 Total Counted 100 Immature Gran % 4.2 Nucleated RBC % 0.0 Immature Gran # 0.83 Segmented Neutrophils 85 Band Neutrophils 1 Lymphocytes 7 L Monocytes 7 Nucleated RBCs # 0.00 Platelet Estimate Adequate Hypochromasia 1+ Morphology Comment Sodium 143 Potassium 4.8 Chloride 106 Carbon Dioxide 22 Anion Gap 19.8 H BUN 20 H Creatinine 0.90 GFR Calculation 127 BUN/Creatinine Ratio 22.00 H Glucose 123 H Calculated Osmolality 288.0 Calcium 8.4 L Total Bilirubin 0.40 AST 26 ALT 96 H Alkaline Phosphatase 99 Total Protein 6.7 Albumin 2.5 L Globulin 4.2 H Albumin/Globulin Ratio 0.5 L Free T4 TSH 3rd Generation Hepatitis A IgM Ab Negative Hep Bs Antigen Negative Hep B Core IgM Ab Negative Hepatitis C Antibody Negative 01/10/17 06:13 WBC RBC Hgb Hct MCV MCH MCHC RDW Plt Count MPV Neut % (Auto) Lymph % (Auto) [place] % (Auto) Eos % (Auto) Baso % (Auto) Neut # (Auto) Lymph # (Auto) [place] # (Auto) Eos # (Auto) Baso # (Auto) Total Counted Immature Gran % Nucleated RBC % Immature Gran # Segmented Neutrophils Band Neutrophils Lymphocytes Monocytes Nucleated RBCs # Platelet Estimate Hypochromasia Morphology Comment Sodium Potassium Chloride Carbon Dioxide Anion Gap BUN Creatinine GFR Calculation BUN/Creatinine Ratio Glucose Calculated Osmolality Calcium Total Bilirubin AST ALT Alkaline Phosphatase Total Protein Albumin Globulin Albumin/Globulin Ratio Free T4 1.09 TSH 3rd Generation 3.640 Hepatitis A IgM Ab Hep Bs Antigen Hep B Core IgM Ab Hepatitis C Antibody DS: Provider Date of admission: 01/04/17 20:33 Primary care physician: . No PCP Attending physician on admission: Reji Tee MD Consults: 01/07/17 17:13 Consult to Physician [CONS] Routine Comment: dr villa on floor at this time to see pt. Consulting Provider: Eran Villa Consulting Provider Notified: Yes Date Notified: 01/07/17 Consult Notification Comment: Previously notified office, Dr Villa on floor at 1714 Discharging clinician: Nancy Solis NP <MaryA nne Carranza - Last Filed: 01/10/17 15:35> Hospital Course - Hospital Course Hospital Course: Patient seen and examined. reviewed and edited. ok to discharge home and follow- up with PCP in 2 weeks and pulmonology (Dr. Villa) in 1 month with follow-up chest x-ray. - Time spent with patient Time with patient DS: Greater than 30 minutes Discharge Plan - Discharge Data Condition at Discharge: Stable Discharge Diet: advance to your usual diet Activity: resume usual activities as tolerated Hygiene: no restrictions Weight Bearing at Discharge: full weight bearing Driving: no restrictions Contact your physician if you experience:: fever over 101, Difficulty voiding, Redness or swelling, Nausea/Vomiting, Shortness of breath, Bleeding, pain uncontrolled by pain medications Exam - Constitutional General appearance: normal weight, no acute distress - Head Head exam: Present: normal inspection, normocephalic, atraumatic - Eye Eye exam: Present: EOMI. Absent: scleral icterus Pupils: Present: CALEB - ENT ENT exam: Present: normal exam - Respiratory Respiratory exam: Present: clear to auscultation bilaterally. Absent: accessory muscle use - Cardiovascular Cardiovascular exam: Present: regular rate and rhythm. Absent: diastolic murmur , systolic murmur, tachycardia - GI/Abdominal GI/Abdominal exam: Present: normal bowel sounds, soft. Absent: mass, organomegaly, tenderness - Neurological Exam Neurological exam: Present: alert, oriented X3, normal gait - Skin Skin exam: Present: normal color, warm, dry
[2017-01-10 08:13] LABS: Hepatitis A Ab IgM Quant 0.15 Index; Hepatitis A Ab IgM Result Negative (Negative); Hepatitis B Core IgM Quant 0.15 Index; Hepatitis B Core IgM Result Negative (Negative); Hepatitis B Surface Ag Quant 0.62 Index; Hepatitis B Surface Ag Result Negative (Negative); Hepatitis C Virus Ab Quant 0.15 Index; Hepatitis C Virus Ab Result Negative (Negative)
--- NOTE | 2017-01-10 08:14 | Ultrasound Report ---
Exam: US right upper quadrant Date: 01/10/2017 12:00 AM Comparison: None Indication: Elevated liver function tests Technique:[Multiple transabdominal real-time scans were obtained of the right upper quadrant. Color-flow scans obtained. Ultrasound images were captured and stored.] Findings: No definite gallstones are identified. The gallbladder is contracted. The wall of the gallbladder measures 2 mm with negative sonographic Marie sign. CBD is normal in size measuring 3 mm. The liver is normal in size with diffuse fatty infiltration. The right kidney measures 114 mm in length with no mass or hydronephrosis. The visualized pancreas and aorta have an unremarkable appearance with color flow documented in the IVC. The pancreas and distal aorta including the aortic bifurcation are obscured by bowel gas. Impression: No definite gallstones are identified. Gallbladder is contracted with negative sonographic Marie sign. If symptoms persist, biliary scan with ejection fraction may be helpful for further evaluation. Fatty infiltration of the liver. The pancreas and distal aorta are obscured by bowel gas. PROCEDURE INTERPRETED AT [facility] DEPARTMENT OF RADIOLOGY Final Report Signed by: Dr. Danni Lara
[2017-01-10] MEDS: methylPREDNISolone SOD SUC 40 MG/1 ML VIAL IV SCH (08:53)
[2017-01-10] MEDS: amLODIPine 5 MG TABLET PO SCH (08:54)
[2017-01-10] MEDS ORDERED: POLYETHYLENE GLYCOL POWDER 17 GM PACK PO SCH (09:00)
--- NOTE | 2017-01-10 09:35 | Pulmonology Progress Note ---
Pulmonary - PN: Subj Interval history: Chest CT showed a small left pleural effusion but it looks to be enough to tap. I did a left thoracentesis today but it was a dry tap. We tried 3 different areas. At this point I will leave it alone and follow-up with x-rays for a couple of days. 01/09/2017 patient is feeling better. Chest x-ray actually looks better. Hopefully the left pleural effusion will continue to resolve. Does not have any fever. 01/10/17 patient is eating and having bowel movements. Chest sounds better. I will see him back in the office in a month with a follow-up chest x-ray to be sure this pleural effusion resolves. Exam (Progress Note) - Constitutional Vitals: Period Temp Pulse Resp BP Sys/Zamora Pulse Ox Last 24 Hr 97.8 F-98.6 F 70-92 18-20 137-162/75-90 92-98 Exam: Patient alert oriented vital signs normal. Pupils react to light. Throat is clear. Neck supple no bruits. Chest reveals slightly decreased breath sounds at the left base and dullness there. Heart normal rate and rhythm no murmurs. Abdomen soft no masses. Bowel sounds present. Extremities no clubbing cyanosis or edema. Calves nontender. Results - Labs CBC & BMP: 01/10/17 06:13 01/10/17 06:13 Lab Results: I have reviewed the past 24 hour labs Assessment and Plan (1) Pleural effusion on left Status: Acute Assessment and plan: It is apparent that he has a left pleural effusion that is increasing in size. I will get a CT scan of the chest to determine the extent of it. We will check for pulmonary embolus at the same time as we need to rule that out. Likely will need a thoracentesis in the morning. 01/08/2017 attempted left thoracentesis but unable to get fluid. Probably not enough to try further at this point. We will follow up with x-ray 01/09/2017 this is resolving. Probably sympathetic to abdominal process. 01/10/17 this appears to be resolving. Will need a follow-up x-ray in a month. I will set that up. Current Visit: Yes (2) Ileus Status: Acute Assessment and plan: This appears to have resolved. I have had a partial small bowel obstruction. Not clear as to the exact diagnosis there but it is improved. 01/08/2017 this is improved. 01/09/2017 patient is eating and passing gas. 01/10/17 having bowel movements. Ileus has resolved. Current Visit: Yes (3) Pneumonia Status: Acute Assessment and plan: Clinically I think he has a pneumonia. Has an elevated white blood count left pleural effusion and left basilar infiltrate. Currently on Levaquin and Flagyl which is acceptable. 01/08/2017 continue with antibiotics for suspected pneumonia. 01/09/2017 continuing antibiotics. Could be changed to oral medications when he is able to tolerate them p.o. 01/10/17 home with oral medications. Current Visit: Yes Specialty Discharge - Follow Up or Referrals Follow up with: Eran Villa MD [Physician] - 1 Month (also needs CXR)
--- NOTE | 2017-01-10 15:48 | ECHO Report ---
Will Kunz Exam Date: 01/10/2017 09:24 Referring Physician: Technologist: Tye NARVAEZ Age: 66 Ht (in): Wt (lb): Gender: M Exam Location: [facility] Echo Indications: tachycardia, pleural effusion, pneumonia, abd. pain, hypertension BP: / HR: Rhythm: Sinus Technical Quality: Good IMPRESSIONS Moderately increased septal wall thickness. Moderate concentric left ventricular hypertrophy with diastolic dysfunction. Left ventricular ejection fraction is estimated at 55-60%. Normal right ventricular size. Normal right atrial size. Normal left atrial size. Mildly thickened mitral valve with mild mitral regurgitation. Aortic valve sclerosis without stenosis or regurgitation. Morphologically normal tricuspid valve. Mild tricuspid valve regurgitation. Tricuspid regurgitation velocities suggest a PAP of 18.1 mmHg + RAP. Morphologically normal pulmonic valve. Trace pulmonary valve regurgitation. No pericardial effusion. Normal size aortic root and proximal ascending aorta. MEASUREMENTS (Male / Female) Normal Values 2D ECHO LV Diastolic Diameter PLAX 4.8 cm 4.2 - 5.9 / 3.9 - 5.3 cm LV Systolic Diameter PLAX 3.5 cm LV Fractional Shortening PLAX 28.5 % IVS Diastolic Thickness 1.6 cm 0.6 - 1.0 / 0.6 - 0.9 cm LVPW Diastolic Thickness 1.3 cm 0.6 - 1.0 / 0.6 - 0.9 cm RV Internal Dim ED PLAX 2.0 cm Aortic Root Diameter 2.7 cm LA Systolic Diameter LX 3.4 cm 3.0 - 4.0 / 2.7 - 3.8 cm DOPPLER TR Peak Velocity 213.0 cm/s TR Peak Gradient 18.1 mmHg FINDINGS Left Ventricle Moderately increased septal wall thickness. Moderate concentric left ventricular hypertrophy with diastolic dysfunction. Left ventricular ejection fraction is estimated at 55-60%. Right Ventricle Normal right ventricular size. Right Atrium Normal right atrial size. Left Atrium Normal left atrial size. Mitral Valve Mildly thickened mitral valve with mild mitral regurgitation. Aortic Valve Aortic valve sclerosis without stenosis or regurgitation. Tricuspid Valve Morphologically normal tricuspid valve. Mild tricuspid valve regurgitation. Tricuspid regurgitation velocities suggest a PAP of 18.1 mmHg + RAP. Pulmonic Valve Morphologically normal pulmonic valve. Trace pulmonary valve regurgitation. Pericardium No pericardial effusion. Aorta Normal size aortic root and proximal ascending aorta. Cheo Queen MD (Electronically Signed) Final Date: 10 January 2017 15:47
[2017-01-10 17:03] VITALS: BP 151/83
== END 2017-01-10 17:36 | disposition home or self-care (01) | DRG 388 ==
LOC: N.ED 17:36 → N.EDINP 20:33 → SUATTDRO 20:33 → N.5E 21:12
PROVIDERS: ADMIT Internal Medicine Pulmonary Disease; ATTEND Pediatrics